=== PATIENT | male | born 1990 | race Caucasian/White ===

== ENCOUNTER 2021-07-18 22:59 | Emergency (ER) | payer BC, SELFPAY ==
[2021-07-18 23:09] VITALS: BP 128/88; PULSE 112; RESP 18; TEMP 36.7; O2SAT 98; BMI 26.6
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
[2021-07-18] MEDS: ibuprofen 200 mg Tablet 400 MG PO (23:40)
[2021-07-18] MEDS: acetaminophen 500 mg Tablet PO (23:40)
== END 2021-07-19 | disposition home or self-care (01) ==
PROVIDERS: Emergency Provider Nurse Practitioner Family
DX: S00.81XA Abrasion of other part of head, initial encounter (principal); S20.219A Contusion of unspecified front wall of thorax, initial encounter; Y04.2XXA Assault by strike against or bumped into by another person, initial encounter
CPT/HCPCS: 71046; 99283